=== PATIENT | male | born 1980 | race Caucasian/White ===

== ENCOUNTER 2017-09-15 01:17 | Emergency (ER) | payer OTHER, MEDICAID ==
[~2017-09-15] VITALS: Ht 182.9 cm; Wt 79.4 kg
--- NOTE | 2017-09-15 01:17 | NUR ---
BIBA TO ER BED 6
--- NOTE | 2017-09-15 01:18 | NUR ---
[facility] AT BEDSIDE.
--- NOTE | 2017-09-15 01:19 | NUR ---
PATIENT BELONGINGS COLLECTED AND TAKEN BY SECURITY. Addendum: 09/15/17 at 0532 by [email or web address] PATIENT PLACED ON 5150 HOLD. PATIENT BELONGINGS COLLECTED AND TAKEN BY SECURITY.
--- NOTE | 2017-09-15 01:20 | NUR ---
PATIENT IS A 36 Y/O MALE WHO PRESENTS TO THE ED C/O SUICIDAL IDEATION AND DIFF BREATHING. PER [facility] WAS FOUND IN THE STREET NEAR 7-11. PT STATES, "I WANTED TO SMASH MY HEAD THROUGH THE GLASS WINDOW." PT DENIES PAIN, CP, SOB, N/V/D. PT AAOX4, RR EVEN/UNLABORED. PT REPOSITIONED FOR COMFORT, BED IN LOWEST POSITION. ER MD DR. JACKSON NOTIFIED. WILL CONTINUE TO MONITOR.
--- NOTE | 2017-09-15 01:23 | NUR ---
Patient being evaluated by physician at bedside.
[2017-09-15 01:24] VITALS: BP 114/74
--- NOTE | 2017-09-15 01:30 | NUR ---
PATIENT RESTING AT THIS TIME. NO SIGNS OF DISTRESS.
[2017-09-15 01:34] LABS: HEMATOCRIT 43.8 % (36-52); HEMOGLOBIN 14.1 g/dL (12.0-18.0); MEAN CORPUSCULAR HEMOGLOBIN 28 pg (27-31); MEAN CORPUSCULAR HGB CONC 32 g/dL (33-37); MEAN CORPUSCULAR VOLUME 88 fL (80-94); PLATELET COUNT (AUTO) 180 K/uL (140-450); RED BLOOD CELL COUNT(AUTO) 4.99 MIL/uL (4.20-6.10); RED CELL DISTRIBUTION WIDTH 12.6 % (11.6-13.7)
[2017-09-15 01:44] LABS: ANION GAP 9.1 (8-16); CARBON DIOXIDE 31.7 mmol/L (21-32); CHLORIDE 105 mmol/L (98-107); CREATININE 0.9 mg/dL (0.7-1.3); GFR ARICAN-AMERICAN 122 mL/min (>90); GLUCOSE 99 mg/dL (74-106); POTASSIUM 3.8 mmol/L (3.5-5.1); SODIUM SERUM 142 mmol/L (136-145); UREA NITROGEN, BLOOD 17 mg/dL (7-18)
--- NOTE | 2017-09-15 01:45 | NUR ---
5150 PAPERWORK COMPLETED AND PLACED IN PT CHART.
[2017-09-15 01:49] LABS: ALBUMIN 3.5 g/dL (3.4-5.0); ASPARTATE AMINOTRANSFERASE 15 U/L (15-37); TOTAL BILIRUBIN 1.3 mg/dL (0.0-1.0)
[2017-09-15 01:51] LABS: EOSINOPHILS % (MANUAL) 1 % (0-4); LYMPHOCYTES % (MANUAL) 55 % (20-46); MONOCYTES % (MANUAL) 4 % (5-12)
[2017-09-15 01:52] LABS: ACETAMINOPHEN < 0.5 ug/ml (10-30); SALICYLATE < 2.8 mg/dL (2.8-20.0)
[2017-09-15 02:07] LABS: BARBITURATE, URINE NEG. ng/ml (NEG <=200); BENZODIAZEPINE, URINE NEG. ng/mL (NEG <=200); CANNABINOID, URINE NEG. ng/mL (NEG <=50); COCAINE, URINE NEG. ng/mL (NEG <=300); OPIATE, URINE NEG. ng/mL (NEG <=2000); PHENCYCLIDINE SCREEN,URINE NEG. ng/mL (NEG <=25)
--- NOTE | 2017-09-15 02:41 | NUR ---
WARM BLANKET GIVEN. PT RESTING, AAOX4 AT THIS TIME.
--- NOTE | 2017-09-15 03:30 | NUR ---
PATIENT RESTING AT THIS TIME. NO SIGNS OF DISTRESS.
--- NOTE | 2017-09-15 04:30 | NUR ---
PATIENT RESTING AT THIS TIME. NO SIGNS OF DISTRESS.
--- NOTE | 2017-09-15 05:30 | NUR ---
PATIENT RESTING AT THIS TIME.
--- NOTE | 2017-09-15 06:00 | NUR ---
PATIENT MOVED TO ER BED 1. CONSTRUCTION STARTED IN BED 6.
--- NOTE | 2017-09-15 06:20 | NUR ---
Patient to be transferred to [facility]. Is being transferred due to HIGHER LEVEL OF CARE. Receiving facility has accepting physician and available space. ER physician has signed transfer form. Patient or responsible alliance party has agreed to transfer and signed form. Patient belongings inventoried and will be sent with patient. Copy of nursing notes, lab reports, EKG, Physicians Orders and X-rays to be sent with patient. Report called to PRIYA BRISCOE at receiving facility. [facility] ambulance service has been called for transfer. ETA is 45 MIN.
[2017-09-15 06:57] VITALS: BP 99/60
--- NOTE | 2017-09-15 06:57 | NUR ---
[facility] TRANSFER ARRIVED FOR PICKUP.
== END 2017-09-15 06:57 ==
LOC: MED 01:17
DX: R45.851 Suicidal ideations (principal); F20.9 Schizophrenia, unspecified
CPT/HCPCS: 36415; 80053; 80305; 85025; 93005; 99285; G0480; G0482